=== PATIENT | male | born 1980 | race Two or more races ===

== ENCOUNTER 2017-02-09 09:10 | Emergency (ER) | payer MEDICAID, OTHER ==
[2017-02-09 09:35] VITALS: BP 132/77
--- NOTE | 2017-02-09 09:56 | UC ---
Respiratory Complaint HPI - HPI Summary HPI Summary: States that cough and sinus pain started yesterday. [place] feverish last night with chills but did not take his temperature. - History of Current Complaint Chief Complaint: UCGeneralIllness Stated Complaint: ST,HEADACHE,SINUS Time Seen by Provider: 02/09/17 09:37 Hx Obtained From: Patient Onset/Duration: Gradual Onset Severity Initially: Moderate Severity Currently: Moderate Character: Cough: Productive - thick white sputum Aggravating Factors: Nothing Alleviating Factors: Nothing Associated Signs And Symptoms: Positive: Chills, URI, Sinus Discomfort. Negative: Pleuritic Chest Pain, Wheezing - Allergies/Home Medications Allergies/Adverse Reactions: Allergies Allergy/AdvReac Type Severity Reaction Status Date / Time No Known Allergies Allergy Verified 07/20/16 17:29 Home Medications: Home Medications Dextromethorphan-Phenylephrine [Vicks Dayquil Cold & Flu 10-5-325 mg/15Ml] [History] Diphenhydramine HCl [Benadryl Allergy 25 MG TAB] 02/09/17 [History] Escitalopram Oxalate [Lexapro] 02/09/17 [History] PMH/Surg Hx/FS Hx/Imm Hx Previously Healthy: Yes Endocrine History Of: Denies: Diabetes, Thyroid Disease Cardiovascular History Of: Denies: Cardiac Disorders, Hypertension Respiratory History Of: Denies: COPD, Asthma GI/ History Of: Denies: Ulcer - Surgical History Surgical History: Yes Surgery Procedure, Year, and Place: fx right arm at 8 years old - surgical repair - Social History Alcohol Use: Rare Substance Use Type: None Smoking Status (MU): Never Smoked Tobacco Type: Smokeless Tobacco Have You Smoked in the Last Year: No Review of Systems Constitutional: Chills - last night Skin: Negative Eyes: Negative ENT: Other - Sinus pain Respiratory: Cough - some shortness of breath with coughing fits Cardiovascular: Negative Gastrointestinal: Negative Genitourinary: Negative Motor: Negative Neurovascular: Negative Musculoskeletal: Negative Neurological: Negative Psychological: Negative All Other Systems Reviewed And Are Negative: Yes Physical Exam Triage Information Reviewed: Yes Appearance: Well-Appearing, No Pain Distress, Well-Nourished Vital Signs: Initial Vital Signs Temp 97.8 F 02/09/17 09:30 Pulse 93 02/09/17 09:30 Resp 16 02/09/17 09:30 BP 132/77 02/09/17 09:30 Pulse Ox 95 02/09/17 09:30 Vital Signs Reviewed: Yes Eye Exam: Normal Eyes: Positive: Conjunctiva Clear ENT Exam: Normal ENT: Positive: Normal ENT inspection, Hearing grossly normal, Pharynx normal, TMs normal. Negative: Pharyngeal erythema, Tonsillar swelling, Tonsillar exudate Neck exam: Normal Neck: Positive: Supple, Nontender, No Lymphadenopathy Respiratory Exam: Normal Respiratory: Positive: Chest non-tender, Lungs clear, Normal breath sounds, No respiratory distress, No accessory muscle use Cardiovascular Exam: Normal Cardiovascular: Positive: RRR, No Murmur Musculoskeletal Exam: Normal Musculoskeletal: Positive: Strength Intact, ROM Intact Neurological Exam: Normal Neurological: Positive: Alert, Muscle Tone Normal Psychological Exam: Normal Psychological: Positive: Age Appropriate Behavior Skin Exam: Normal UC Diagnostic Evaluation - Laboratory O2 Sat by Pulse Oximetry: 95 Respiratory Course/Dx - Course Course Of Treatment: This is most likely a viral upper respiratory infection. Symptoms started yesterday and he is afebrile today. We have educated him to take Ibuprofen as needed for his sinus pain. We will also prescribe him tessalon pearls for his cough. He is encouraged to call his doctor for any high fevers or worsening symptoms. He is educated that symptoms may last 2-3 weeks. - Differential Dx/Diagnosis Differential Diagnosis/HQI/PQRI: Bronchitis, Influenza, Sinusitis Provider Diagnoses: Viral Upper Respiratory Infection Discharge - Discharge Plan Condition: Stable Disposition: HOME Prescriptions: Benzonatate CAP* [Tessalon 100 MG CAP*] 100 mg PO TID #30 cap Patient Education Materials: Upper Respiratory Infection (ED) Print Language: CITIZEN OF [place] Referrals: Dania Gonzalez NP [Primary Care Provider] - Additional Instructions: Call or return if you develop increasing fever, shortness of breath, chest pain , bloody sputum, or otherwise worsen. If you have not improved at all after several days, contact your primary care physician or return here.
== END 2017-02-09 10:04 | disposition home or self-care (01) ==
LOC: UCEAST 09:10
DX: J06.9 Acute upper respiratory infection, unspecified (principal)
CPT/HCPCS: 99212; G0463